=== PATIENT | female | born 1960 | race Caucasian/White ===

== ENCOUNTER 2018-04-27 18:20 | Emergency (ER) | payer OTHER ==
[~2018-04-27] VITALS: Ht 165.1 cm; Wt 70.3 kg
[2018-04-27 18:57] VITALS: BP 147/81
[2018-04-27] MEDS ORDERED: NEOMYCIN-BACITRACIN-POLYM 15GM TOP OINT TOP SCH (22:30)
[2018-04-27] MEDS ORDERED: BACITRACIN TOP OINT 1 UD PKG TOP ONE (22:30)
== END 2018-04-27 23:11 | disposition home or self-care (01) ==
LOC: ER 18:20
DX: S81.012A Laceration without foreign body, left knee, initial encounter (principal); I10 Essential (primary) hypertension; E11.9 Type 2 diabetes mellitus without complications; E78.00 Pure hypercholesterolemia, unspecified; W26.0XXA Contact with knife, initial encounter; Y93.89 Activity, other specified; Y99.8 Other external cause status; Y92.89 Other specified places as the place of occurrence of the external cause
CPT/HCPCS: 12001

== ENCOUNTER 2019-11-23 13:12 | Inpatient (IN) | payer OTHER ==
[~2019-11-23] VITALS: Ht 165.1 cm; Wt 69.3 kg
[2019-11-23 13:55] LABS: Basophils # (auto) 0.1 10 ^3/uL (0-0.2); Basophils % (auto) 1.4 % (0.0-2.0); Eosinophils # (auto) 0.3 10 ^3/uL (0-0.8); Eosinophils % (auto) 2.5 % (0.0-7.0); Hematocrit 40.5 % (36.0-46.0); Hemoglobin 12.9 g/dL (12.2-16.2); Lymphocytes % (auto) 28.9 % (10.0-50.0); Mean Corpuscular Hemoglobin 27.4 pg (28.0-32.0); Mean Corpuscular Hgb Conc. 31.8 g/dL (32.0-36.0); Monocytes # (auto) 0.7 10 ^3/uL (0-1.3); Monocytes % (auto) 6.4 % (0.0-12.0); Neutrophils # (auto) 6.3 10 ^3/uL (1.6-8.6); Neutrophils % (auto) 60.8 % (37.0-80.0); Nucleated Red Blood Cells % 0.1 %; Platelet Count (auto) 341 10^3/uL (140-450); Red Blood Cells 4.71 10^6/uL (4.0-5.20); Red Cell Distribution Width 14.2 % (11.8-14.3); White Blood Cell 10.3 10^3/uL (4.4-10.8)
[2019-11-23 14:26] LABS: Urine Bacteria NONE SEEN /hpf (None Seen); Urine Blood Negative /uL (Negative); Urine Mucus FEW (None Seen); Urine WBC 5 /hpf (0 - 5)
[2019-11-23 16:27] LABS: Albumin 3.8 g/dL (3.4-5.0); Calcium 9.3 mg/dL (8.5-10.1); Potassium 4.1 mmol/L (3.5-5.1)
[2019-11-23 16:31] LABS: BUN/Creatinine Ratio 12.7; Bilirubin, Total 0.3 mg/dL (0.2-1.0); Total Protein 8.2 g/dL (6.4-8.2)
[2019-11-23] MEDS ORDERED: SODIUM CHLORIDE 0.9% 1,000 ML IV ONE (17:00)
[2019-11-23] MEDS ORDERED: TAMSULOSIN HYDROCHLORIDE 0.4 MG CAP PO ONE (17:00)
[2019-11-23 17:10] LABS: Alcohol, Urine < 3.0 mg/dL (0-10); Amphetamine Screen, Urine NEGATIVE (NEGATIVE); Barbiturate Scree,Urine NEGATIVE (NEGATIVE); Benzodiazephine Screen, Urine NEGATIVE (NEGATIVE); Cannabinoid Screen, Urine NEGATIVE (NEGATIVE); Cocaine Screen, Urine NEGATIVE (NEGATIVE); Opiate Scree,Urine NEGATIVE (NEGATIVE); Phencyclidine Screen, Urine NEGATIVE (NEGATIVE)
[2019-11-23] MEDS ORDERED: PANTOPRAZOLE 40 MG/10 ML VIAL INJ IV ONE (19:15)
[2019-11-23] MEDS ORDERED: cefTRIAXone 1GM/50ML D5W 50 ML IV ONE (19:15)
[2019-11-23] MEDS ORDERED: MORPHINE SULF INJ 2 MG/ML SYRINGE 1ML IV PRN ×2 (19:15→19:30)
[2019-11-23] MEDS ORDERED: LACTATED RINGER'S 1,000 ML IV ONE (19:15)
[2019-11-23] MEDS ORDERED: NITROGLYCERIN 0.4 MG SL TAB SL PRN (19:30)
[2019-11-23 23:00] VITALS: BP 122/70
[2019-11-23 23:30] VITALS: BP 136/69
--- NOTE | 2019-11-23 23:30 | NUR ---
Telemetry admit from ER Alvarado Shonna admitted to Telemetry unit after SBAR received. Patient oriented to JEFERSON HEATH RN primary RN, unit, room, bed, and unit policies regarding patient care and visiting hours. Patient now on continuous telemetry monitoring, tele box # [id number] and telemetry reading on arrival to unit is Sinus Rhythm at 90BPM. Patient placed on bedside oxygen, weighed by bedscale and encouraged to call if they need something. All questions and concerns addressed, patient verbalized understanding.
--- NOTE | 2019-11-24 | NUR ---
Patient states she is taking metformin, Levothroid, vitamin D, Glipizide and 3 kinds of eye drops but cannot remember the dose of these medications.
[2019-11-24] MEDS ORDERED: MORPHINE SULF INJ 2 MG/ML SYRINGE 1ML IV PRN (02:00)
[2019-11-24] MEDS ORDERED: ACETAMINOPHEN 325 MG TAB PO PRN (02:00)
[2019-11-24] MEDS ORDERED: NITROGLYCERIN 0.4 MG SL TAB SL PRN (02:00)
[2019-11-24] MEDS ORDERED: LORazepam 0.5 MG TAB PO PRN (02:00)
[2019-11-24] MEDS ORDERED: ALUM & MAG HYDROX-SIMETH LIQ(MAALOX) 30 ML PO PRN (02:00)
[2019-11-24] MEDS ORDERED: DOCUSATE SOD 100 MG CAP PO PRN (02:00)
[2019-11-24] MEDS ORDERED: hydrALAZINE HCL 20 MG/ML VL IV PRN (02:30)
[2019-11-24] MEDS ORDERED: DEXTROSE (50%) 50ML SYRG IV PRN (02:30)
[2019-11-24 02:32] LABS: Urine Amorphous Crystal MANY /hpf (None Seen); Urine Bacteria FEW /hpf (None Seen); Urine Blood Negative /uL (Negative); Urine Specific Gravity 1.029 (1.001-1.035); Urine WBC 12 /hpf (0 - 5)
[2019-11-24 02:37] LABS: Alcohol, Urine < 3.0 mg/dL (0-10); Amphetamine Screen, Urine NEGATIVE (NEGATIVE); Barbiturate Scree,Urine NEGATIVE (NEGATIVE); Benzodiazephine Screen, Urine NEGATIVE (NEGATIVE); Cannabinoid Screen, Urine NEGATIVE (NEGATIVE); Cocaine Screen, Urine NEGATIVE (NEGATIVE); Opiate Scree,Urine NEGATIVE (NEGATIVE); Phencyclidine Screen, Urine NEGATIVE (NEGATIVE)
[2019-11-24 04:26] LABS: Cholesterol 134 mg/dL (< 200)
[2019-11-24 04:28] LABS: HDL Cholesterol 33 mg/dL (40-59); LDL Cholesterol 71 mg/dL (< 100); Triglycerides 303 mg/dL (< 150)
[2019-11-24] MEDS ORDERED: ASPI-543 PO (04:35)
[2019-11-24] MEDS ORDERED: ATOR20TA PO (04:52)
[2019-11-24 05:20] VITALS: BP 119/68
[2019-11-24] MEDS: SODIUM CHLORIDE 0.9% 1,000 ML IV SCH ×3 (06:19→23:00)
[2019-11-24] MEDS: ACCU-CHEK COMFORT CURVE STRIP VI SCH ×4 (06:20→22:59)
[2019-11-24] MEDS: InsuLIN REG 1unit/0.01ml Soln (100units/ml) SC SCH ×4 (06:21→23:13)
[2019-11-24] MEDS: LEVOTHYROXINE SODIUM 50 MCG TAB PO SCH (06:45)
[2019-11-24] MEDS: DORZOLAMIDE HCL 2% OPTH(EYE) SOL 10ML EACHEYE SCH ×3 (08:14→22:56)
[2019-11-24 09:00] VITALS: BP 124/76
[2019-11-24] MEDS: cefTRIAXone 1GM/50ML D5W 50 ML IV SCH (09:00)
[2019-11-24] MEDS: PANTOPRAZOLE 40 MG/10 ML VIAL INJ IV SCH (09:24)
[2019-11-24] MEDS: BRIMONIDINE 0.2% OPTH Soln 5ml EACHEYE SCH ×2 (09:24→22:56)
[2019-11-24] MEDS: METOPROLOL TARTRATE 25 MG TAB PO SCH ×2 (09:26→22:00)
[2019-11-24] MEDS: HEPARIN SODIUM (PORCINE) 5000 UNITS/ML 1ML VIAL SC SCH ×2 (09:26→23:12)
[2019-11-24] MEDS ORDERED: ASPirin 81 mg TAB PO SCH (10:00)
--- NOTE | 2019-11-24 10:22 | NUR ---
Opening Shift Note Assumed care of patient, awake and alert. No S/S of distress/SOB or pain. Instructed on POC and to call for assist PRN, will continue to monitor for changes Q1hr and PRN.
[2019-11-24 11:51] LABS: Basophils # (auto) 0.1 10 ^3/uL (0-0.2); Basophils % (auto) 0.8 % (0.0-2.0); Eosinophils # (auto) 0.1 10 ^3/uL (0-0.8); Eosinophils % (auto) 2.3 % (0.0-7.0); Hematocrit 36.3 % (36.0-46.0); Hemoglobin 11.7 g/dL (12.2-16.2); Lymphocytes # (auto) 1.9 10 ^3/uL (0.4-5.4); Lymphocytes % (auto) 28.9 % (10.0-50.0); Mean Corpuscular Hemoglobin 27.7 pg (28.0-32.0); Mean Corpuscular Hgb Conc. 32.4 g/dL (32.0-36.0); Mean Corpuscular Volume 85.5 fL (80.0-100.0); Monocytes # (auto) 0.5 10 ^3/uL (0-1.3); Monocytes % (auto) 7.4 % (0.0-12.0); Neutrophils # (auto) 3.9 10 ^3/uL (1.6-8.6); Neutrophils % (auto) 60.6 % (37.0-80.0); Platelet Count (auto) 270 10^3/uL (140-450); Red Blood Cells 4.24 10^6/uL (4.0-5.20); Red Cell Distribution Width 13.8 % (11.8-14.3); White Blood Cell 6.5 10^3/uL (4.4-10.8)
[2019-11-24 12:13] LABS: Albumin 3.2 g/dL (3.4-5.0); Calcium 8.6 mg/dL (8.5-10.1); Potassium 4.2 mmol/L (3.5-5.1)
[2019-11-24 12:17] LABS: INR 1.01 (0.9-1.15); Partial Thromboplastin Time 26.7 sec (23.0-31.2)
[2019-11-24 12:18] LABS: BUN/Creatinine Ratio 12.7; Bilirubin, Total 0.3 mg/dL (0.2-1.0); Magnesium 2.1 mg/dL (1.6-2.6); Phosphorus 3.2 mg/dL (2.5-4.90); Total Protein 7.2 g/dL (6.4-8.2)
[2019-11-24 13:00] VITALS: BP 134/70
--- NOTE | 2019-11-24 13:14 | NUR ---
dr aleman at bedside, electrical and instrument technician at bedside
--- NOTE | 2019-11-24 13:39 | NUR ---
dr aleman stated the abdominal and vaginal ultrasound are normal bleeding is most likely contributed to kidney stone
[2019-11-24 16:50] VITALS: BP 121/73
[2019-11-24] MEDS: TAMSULOSIN HYDROCHLORIDE 0.4 MG CAP PO SCH (17:03)
[2019-11-24] MEDS: ATORVASTATIN 20 MG TAB PO SCH (22:00)
[2019-11-24 22:34] VITALS: BP 118/65
[2019-11-24] MEDS: LATANOPROST 0.005 % OPTH(EYE) SOL 2.5ML EACHEYE SCH (22:57)
[2019-11-25 05:30] VITALS: BP 120/53
[2019-11-25] MEDS: DORZOLAMIDE HCL 2% OPTH(EYE) SOL 10ML EACHEYE SCH ×3 (06:09→22:00)
[2019-11-25] MEDS: ACCU-CHEK COMFORT CURVE STRIP VI SCH ×4 (06:09→22:36)
[2019-11-25] MEDS: LEVOTHYROXINE SODIUM 50 MCG TAB PO SCH (06:09)
[2019-11-25] MEDS: InsuLIN REG 1unit/0.01ml Soln (100units/ml) SC SCH ×4 (06:10→22:44)
[2019-11-25 06:32] LABS: Potassium 4.1 mmol/L (3.5-5.1)
[2019-11-25 06:44] LABS: BUN/Creatinine Ratio 17.7; Calcium 8.5 mg/dL (8.5-10.1)
--- NOTE | 2019-11-25 07:30 | NUR ---
Opening Shift Note Assumed care of patient, resting comfortably. No S/S of distress/SOB or pain on room air. Instructed on POC and to call for assist PRN, will continue to monitor for changes Q1hr and PRN. Bed in low and locked position, rails up x2, no-slip socks on. NPO status maintained for procedure today.
[2019-11-25] MEDS ORDERED: METF-370 PO (08:56)
[2019-11-25] MEDS ORDERED: CHOL20007 PO (08:56)
[2019-11-25] MEDS ORDERED: GLIP5TAB12 PO (08:56)
[2019-11-25] MEDS ORDERED: LEVO25TA6 PO (08:56)
[2019-11-25 09:00] VITALS: BP 123/76
--- NOTE | 2019-11-25 09:18 | NUR ---
DR MULLINS AT BEDSIDE
--- NOTE | 2019-11-25 09:45 | NUR ---
PATIENT OFF UNIT FOR PROCEDURE LATENT FINGERPRINT EXAMINER FOR IR NEPHROSTOMY TUBE PLACEMENT
--- NOTE | 2019-11-25 09:50 | NUR ---
CONSENTS NOT SIGNED PATIENT EXPLAINED SHE STILL HAD QUESTIONS FOR THE DOCTOR REGARDING PROCEDURE, PATIENT ALSO STATED AN ALLERGY TO CONTRAST-IODINE WHEN DOWNSTAIRS IN FINISHING SUPERVISOR PLASTIC SHEETS, PATIENT HAD NOT PREVIOUSLY ADMITTED TO AN ALLERGY TO CONTRAST SINCE ADMISSION. ALLERGY TO BE ADDED TO PATIENT CHART.
[2019-11-25] MEDS: HEPARIN SODIUM (PORCINE) 5000 UNITS/ML 1ML VIAL SC SCH ×2 (10:00→22:00)
[2019-11-25] MEDS: PANTOPRAZOLE 40 MG/10 ML VIAL INJ IV SCH (10:00)
[2019-11-25] MEDS: METOPROLOL TARTRATE 25 MG TAB PO SCH ×2 (10:00→22:00)
[2019-11-25] MEDS ORDERED: LIDOCAINE 2%HCL (LOCAL ANESTH.) INJ 20ML MDV ONE (10:31)
[2019-11-25] MEDS ORDERED: MIDAZOLAM HCL 1MG/1ML-2 ML VIAL ONE ×2 (10:41→16:46)
[2019-11-25] MEDS ORDERED: fentaNYL CITRATE 100 MCG/2 ML VL ONE ×2 (10:41→16:46)
[2019-11-25] MEDS ORDERED: diphenhdrAMINE HCL 50 MG/1 ML VL ONE (10:43)
[2019-11-25] MEDS ORDERED: methylPREDNISolone SOD SUCC 125 MG/2 ML VL ONE (10:43)
[2019-11-25] MEDS ORDERED: FAMOTIDINE (10MG/ML) 2ML VL IV ONE (10:43)
[2019-11-25] MEDS: BRIMONIDINE 0.2% OPTH Soln 5ml EACHEYE SCH ×2 (12:29→22:00)
[2019-11-25] MEDS: cefTRIAXone 1GM/50ML D5W 50 ML IV SCH (12:29)
--- NOTE | 2019-11-25 12:30 | NUR ---
PATIENT BACK ON UNIT PATIENT TOLERATED PROCEDURE WELL, NEW NEPHROSTOMY TUBE TO LEFT FLANK DRAINING PINK URINE, DRESSING INTACT.
[2019-11-25 13:00] VITALS: BP 135/80
--- NOTE | 2019-11-25 15:45 | NUR ---
PATIENT OFF UNIT LITHOTRIPSY
[2019-11-25] MEDS ORDERED: IOHEXOL 300 MG/ML 100ML BOTTLE IJ ONE (16:33)
[2019-11-25] MEDS ORDERED: FUROSEMIDE 20 MG/2 ML VIAL IV ONE (16:35)
[2019-11-25] MEDS ORDERED: ceFAZolin 1GM/50ML 50 ML IV ONE (16:38)
[2019-11-25 17:04] VITALS: BP 139/71
[2019-11-25] MEDS ORDERED: PROPOFOL 10 MG/ML 20 ML IV ONE (17:34)
[2019-11-25] MEDS: TAMSULOSIN HYDROCHLORIDE 0.4 MG CAP PO SCH (18:00)
[2019-11-25] MEDS ORDERED: ONDANSETRON HCL 4 MG/2 ML VIAL IV PRN (18:15)
[2019-11-25] MEDS ORDERED: fentaNYL CITRATE 100 MCG/2 ML VL IV PRN (18:15)
[2019-11-25] MEDS ORDERED: hydrALAZINE HCL 20 MG/ML VL IV PRN (18:15)
[2019-11-25] MEDS ORDERED: ePHEDrine SULFATE 50 MG/ML AMP IV PRN (18:15)
[2019-11-25] MEDS: ONDANSETRON HCL 4 MG/2 ML VIAL IV PRN (18:50)
[2019-11-25] MEDS: MORPHINE SULF INJ 2 MG/ML SYRINGE 1ML IV PRN (20:28)
[2019-11-25 22:00] VITALS: BP 147/76
[2019-11-25] MEDS: ATORVASTATIN 20 MG TAB PO SCH (22:00)
[2019-11-25] MEDS: LATANOPROST 0.005 % OPTH(EYE) SOL 2.5ML EACHEYE SCH (22:00)
[2019-11-26] MEDS: ONDANSETRON HCL 4 MG/2 ML VIAL IV PRN ×2 (00:30→06:56)
[2019-11-26] MEDS: SODIUM CHLORIDE 0.9% 1,000 ML IV SCH ×2 (03:57→20:37)
[2019-11-26 05:00] VITALS: BP 149/60
[2019-11-26] MEDS: DORZOLAMIDE HCL 2% OPTH(EYE) SOL 10ML EACHEYE SCH ×3 (06:53→23:07)
[2019-11-26] MEDS: LEVOTHYROXINE SODIUM 50 MCG TAB PO SCH (06:54)
[2019-11-26] MEDS: ACCU-CHEK COMFORT CURVE STRIP VI SCH ×4 (06:55→23:07)
[2019-11-26] MEDS: MORPHINE SULF INJ 2 MG/ML SYRINGE 1ML IV PRN (06:55)
[2019-11-26] MEDS: InsuLIN REG 1unit/0.01ml Soln (100units/ml) SC SCH ×4 (06:55→23:08)
--- NOTE | 2019-11-26 07:49 | NUR ---
Opening Note Assumed pt care from NOC RN. Pt is a/ox4 with no s/s of distress or SOB. Pt is currently laying in bed with no complaints at this time. Nephrostomy tube present to L side. Capped with credit review analyst, site is asymptomatic. Romero is present, draining to gravity. Dark red/juli urine present. Discussed POC with pt; pt verbalized understanding. Safety measures maintained with call light within reach, bed in lowest position and side rails up. Will continue to monitor for changes.
[2019-11-26 09:00] VITALS: BP 137/59
--- NOTE | 2019-11-26 09:03 | NUR ---
Dr White at Bedside MD to see pt. Discussed POC with pt. is consulting Dr Gonzalez for further POC and d/c planning. No new orders at this time. Will continue to monitor.
[2019-11-26] MEDS: HEPARIN SODIUM (PORCINE) 5000 UNITS/ML 1ML VIAL SC SCH ×2 (09:24→23:14)
[2019-11-26] MEDS: cefTRIAXone 1GM/50ML D5W 50 ML IV SCH (09:24)
[2019-11-26] MEDS: METOPROLOL TARTRATE 25 MG TAB PO SCH ×2 (09:24→22:00)
[2019-11-26] MEDS: PANTOPRAZOLE 40 MG/10 ML VIAL INJ IV SCH (09:24)
[2019-11-26] MEDS: BRIMONIDINE 0.2% OPTH Soln 5ml EACHEYE SCH ×2 (09:31→23:06)
--- NOTE | 2019-11-26 11:40 | NUR ---
IV Insertion and D/C 20G to pt's L FA inserted. One attempt made. Clean/sterile technique used; pt tolerated well. IV to pt's L hand d/c'ed. Catheter was removed fully intact, site is asymptomatic. Pressure was applied to site for 3 minutes with gauze and then wrapped in coban. Pt instructed to keep dressing on for 30 minutes.
--- NOTE | 2019-11-26 13:07 | NUR ---
Straining of Urine Mild sediment noted after straining urine from randall.Urine is still dark red/juli color. No pain as stated by patient. Will continue to monitor.
[2019-11-26] MEDS: HYDROcodone-ACET 5/325MG TAB PO PRN ×2 (15:06→23:15)
--- NOTE | 2019-11-26 15:11 | NUR ---
Pt C/O Flank Pain Pt states that she has some L flank discomfort, 5/10 spasm like in nature. Provided pt with pain medication. Assessed Nephrostomy drain, drained approximately 5mL of sanguinous fluid. Will continue to monitor.
[2019-11-26 17:00] VITALS: BP 124/75
[2019-11-26] MEDS: TAMSULOSIN HYDROCHLORIDE 0.4 MG CAP PO SCH (17:32)
[2019-11-26 22:00] VITALS: BP 136/67
[2019-11-26] MEDS: ATORVASTATIN 20 MG TAB PO SCH (22:00)
[2019-11-26] MEDS: LATANOPROST 0.005 % OPTH(EYE) SOL 2.5ML EACHEYE SCH (23:07)
[2019-11-27 05:45] VITALS: BP 131/71
[2019-11-27] MEDS: DORZOLAMIDE HCL 2% OPTH(EYE) SOL 10ML EACHEYE SCH ×3 (07:02→22:10)
[2019-11-27] MEDS: LEVOTHYROXINE SODIUM 50 MCG TAB PO SCH (07:02)
[2019-11-27] MEDS: InsuLIN REG 1unit/0.01ml Soln (100units/ml) SC SCH ×4 (07:03→22:14)
[2019-11-27] MEDS: ACCU-CHEK COMFORT CURVE STRIP VI SCH ×4 (07:04→22:11)
--- NOTE | 2019-11-27 07:55 | NUR ---
Opening Note Assumed pt care from NOC RN. Pt is a/ox4 with no s/s of distress or SOB/ Pt is currently sitting upright in bed with mild c/o flank pain to L side, 07/28; discussed pain interventions. Romero is present, draining to gravity and free of kinks. Urine is red/juli color. Discussed with pt to increase in fluids; pt verbalized understanding. Safety measures maintained with call light within reach, bed in lowest position, and side rails up. Will continue to monitor for changes.
[2019-11-27] MEDS: HYDROcodone-ACET 5/325MG TAB PO PRN ×2 (08:26→23:20)
[2019-11-27 09:00] VITALS: BP 122/50
--- NOTE | 2019-11-27 09:02 | NUR ---
Dr Steve at Bedside MD to see pt. Pending further POC by Dr Gonzalez. New orders given; read back and verified. Will implement.
[2019-11-27] MEDS: METOPROLOL TARTRATE 25 MG TAB PO SCH ×2 (09:14→21:58)
[2019-11-27] MEDS: PANTOPRAZOLE 40 MG/10 ML VIAL INJ IV SCH (09:14)
[2019-11-27] MEDS: cefTRIAXone 1GM/50ML D5W 50 ML IV SCH (09:14)
[2019-11-27] MEDS: HEPARIN SODIUM (PORCINE) 5000 UNITS/ML 1ML VIAL SC SCH ×2 (09:14→22:10)
[2019-11-27] MEDS: BRIMONIDINE 0.2% OPTH Soln 5ml EACHEYE SCH ×2 (09:19→22:10)
--- NOTE | 2019-11-27 09:38 | NUR ---
STRAINED URINE Mild sediment noted after straining urine with out put of 465cc juli color from randall catheter. No pain as stated by patient. Will continue to monitor. Signed: 11/27/19 at 0942 by ANGELINE HOYT <Co-Signature Required> Co-Signed: 11/27/19 at 42 by JALYN GOMEZ RN RN
[2019-11-27] MEDS ORDERED: LACTULOSE 20Gm/30ML SOLN PO PRN (09:45)
[2019-11-27] MEDS ORDERED: DOCUSATE SOD 100 MG CAP PO SCH (10:00)
[2019-11-27 11:47] LABS: Basophils # (auto) 0.1 10 ^3/uL (0-0.2); Basophils % (auto) 0.8 % (0.0-2.0); Eosinophils # (auto) 0.1 10 ^3/uL (0-0.8); Eosinophils % (auto) 1.3 % (0.0-7.0); Hematocrit 33.9 % (36.0-46.0); Hemoglobin 11.2 g/dL (12.2-16.2); Lymphocytes # (auto) 1.8 10 ^3/uL (0.4-5.4); Lymphocytes % (auto) 24.5 % (10.0-50.0); Mean Corpuscular Hemoglobin 28.1 pg (28.0-32.0); Mean Corpuscular Hgb Conc. 32.9 g/dL (32.0-36.0); Mean Corpuscular Volume 85.3 fL (80.0-100.0); Monocytes # (auto) 0.7 10 ^3/uL (0-1.3); Monocytes % (auto) 9.2 % (0.0-12.0); Neutrophils # (auto) 4.7 10 ^3/uL (1.6-8.6); Neutrophils % (auto) 64.2 % (37.0-80.0); Platelet Count (auto) 245 10^3/uL (140-450); Red Blood Cells 3.97 10^6/uL (4.0-5.20); Red Cell Distribution Width 14.2 % (11.8-14.3); White Blood Cell 7.3 10^3/uL (4.4-10.8)
[2019-11-27 12:08] LABS: Calcium 8.5 mg/dL (8.5-10.1)
[2019-11-27 12:10] LABS: BUN/Creatinine Ratio 10.6
[2019-11-27] MEDS: SODIUM CHLORIDE 0.9% 1,000 ML IV SCH (12:49)
--- NOTE | 2019-11-27 12:56 | NUR ---
Est energy needs 7526-7476 kcal (25-30 kcal/kg BW 68kg) est protein needs 41-54g (0.6-0.8g/kg BW 68kg r/t elevated RFTs) WIll reassess prn. Addendum: 11/27/19 at [address] Amended: Links added.
--- NOTE | 2019-11-27 16:02 | NUR ---
STRAINED URINE Mild sediment noted after straining urine with output of 700cc juli color from randall catheter. No pain as stated by patient. Will continue to monitor. Signed: 11/27/19 at 1602 by ANGELINE HOYT <Co-Signature Required> Co-Signed: 11/27/19 at 1602 by JALYN GOMEZ RN RN
[2019-11-27 17:00] VITALS: BP 149/70
[2019-11-27] MEDS: TAMSULOSIN HYDROCHLORIDE 0.4 MG CAP PO SCH (17:11)
--- NOTE | 2019-11-27 19:35 | NUR ---
RECEIVED PATIENT FROM DAY SHIFT RN. PATIENT RESTING IN BED. NO S/S OF DISTRESS NOTED. DENIED PAIN FOR NOW BUT SORE AT THE LEFT SIDE OF THE BACK IN WHERE NEPHROSTOMY TUBE PLACED WITH DRESSING C/D/I. PATIENT UNDERSTOOD TO CALL FOR PAIN MEDICATION IF SHE NEEDS SCHEDULED. RODRIGUEZ CATH IN PLACE DRAINING TO GRAVITY WITH STRAW COLOR URINE. REPOSITIONED PATIENT TO COMFORT. POC INSTRUCTED AND ENCOURAGED PATIENT TO CALL FOR TELEPHONE BETTING CLERK IF NEEDED. BED IN LOWEST POSITION WITH SIDE RAILS UP X 2. CALL SMITH WITHIN REACH. ALARM ON. CONTINUE TO MONITOR FOR CHANGES Q1H AND PRN.
[2019-11-27] MEDS: DOCUSATE SOD 100 MG CAP PO SCH (21:58)
[2019-11-27 22:00] VITALS: BP 129/71
[2019-11-27] MEDS: ATORVASTATIN 20 MG TAB PO SCH (22:10)
[2019-11-27] MEDS: LATANOPROST 0.005 % OPTH(EYE) SOL 2.5ML EACHEYE SCH (22:10)
--- NOTE | 2019-11-27 22:25 | NUR ---
ACCU-CHECK, BS 245, INSULIN GIVEN ORDERED. CONTINUE TO MONITOR.
--- NOTE | 2019-11-27 23:20 | NUR ---
PATIENT C/O PAIN @ 07/28. MEDICATED PATIENT ORDERED. CONTINUE TO MONITOR.
--- NOTE | 2019-11-28 00:20 | NUR ---
REASSESSED PAIN. PATIENT SLEEPING. NO S/S OF PAIN NOTED. CONTINUE TO MONITOR
[2019-11-28] MEDS: SODIUM CHLORIDE 0.9% 1,000 ML IV SCH ×2 (01:28→22:12)
--- NOTE | 2019-11-28 02:06 | NUR ---
PATIENT WALKED TO BATHROOM WITH STEADY GAIT. HAD BM. CONTINUE TO MONITOR
[2019-11-28] MEDS: DORZOLAMIDE HCL 2% OPTH(EYE) SOL 10ML EACHEYE SCH ×3 (05:35→22:10)
[2019-11-28] MEDS: HYDROcodone-ACET 5/325MG TAB PO PRN ×2 (05:36→17:32)
--- NOTE | 2019-11-28 05:36 | NUR ---
PATIENT C/O PAIN @ 08/27. MEDICATED PATIENT ORDERED. CONTINUE TO MONITOR.
[2019-11-28 06:00] VITALS: BP 128/81
[2019-11-28] MEDS: InsuLIN REG 1unit/0.01ml Soln (100units/ml) SC SCH ×4 (06:24→22:14)
[2019-11-28] MEDS: ACCU-CHEK COMFORT CURVE STRIP VI SCH ×4 (06:24→22:11)
[2019-11-28] MEDS: LEVOTHYROXINE SODIUM 50 MCG TAB PO SCH (06:24)
--- NOTE | 2019-11-28 06:30 | NUR ---
REASSESSED PAIN 0/10. ACCU-CHECK, BS 251. INSULIN GIVEN ORDERED. CONTINUE TO MONITOR.
--- NOTE | 2019-11-28 07:35 | NUR ---
Opening Shift Note Assumed care of patient, awake and alert. No S/S of distress/SOB or pain reported at this time, nephrostomy tube noted to left lower back, site has minimal ecchymosis noted, no c/o pain to site, tube, randall patent and draining juli urine with hematuria noted, call light within reach, Instructed on POC and to call for assist PRN, will continue to monitor for changes Q1hr and PRN.
[2019-11-28 07:37] LABS: BUN/Creatinine Ratio 11.8; Calcium 8.6 mg/dL (8.5-10.1); Potassium 4.2 mmol/L (3.5-5.1)
[2019-11-28 08:00] VITALS: BP 128/74
[2019-11-28 09:14] VITALS: BP 128/74
[2019-11-28] MEDS: HEPARIN SODIUM (PORCINE) 5000 UNITS/ML 1ML VIAL SC SCH (10:00)
[2019-11-28] MEDS: cefTRIAXone 1GM/50ML D5W 50 ML IV SCH (10:51)
[2019-11-28] MEDS: DOCUSATE SOD 100 MG CAP PO SCH ×2 (10:52→22:10)
[2019-11-28] MEDS: PANTOPRAZOLE 40 MG/10 ML VIAL INJ IV SCH (10:52)
[2019-11-28] MEDS: METOPROLOL TARTRATE 25 MG TAB PO SCH ×2 (10:52→22:11)
[2019-11-28] MEDS: BRIMONIDINE 0.2% OPTH Soln 5ml EACHEYE SCH ×2 (10:53→22:10)
[2019-11-28 12:46] VITALS: BP 126/65
--- NOTE | 2019-11-28 14:20 | NUR ---
AT BEDSIDE DR RODRIGUEZ AT BEDSIDE, DISCUSSING POC WITH PT, MD WILL WAIT FOR DR SOTELO TO EVALUATE PT RE: RODRIGUEZ AND NEPHROSTOMY TUBE, INFORMED HEPARIN WILL BE HELD R/T HEMATURIA, CONT CARE
--- NOTE | 2019-11-28 15:48 | NUR ---
PT OFF UNIT/TAKEN TO RADIOLOGY TAKEN VIA WHEELCHAIR, NO DISTRESS NOTED, CONT CARE
[2019-11-28] MEDS ORDERED: IOHEXOL 300 MG/ML 100ML BOTTLE IJ ONE (15:49)
[2019-11-28] MEDS ORDERED: diphenhdrAMINE HCL 50 MG/1 ML VL IV ONE (16:15)
[2019-11-28 17:00] VITALS: BP 132/63
[2019-11-28] MEDS: TAMSULOSIN HYDROCHLORIDE 0.4 MG CAP PO SCH (17:30)
[2019-11-28] MEDS: glipiZIDE 5 MG TAB PO SCH (17:32)
--- NOTE | 2019-11-28 17:35 | NUR ---
CALL BACK SPOKE WITH DR SOTELO, REGARDING NEPHROSTOMY TUBE AND POSSIBLE DC OF RODRIGUEZ CATHETER PER DR RODRIGUEZ, ORDERED TO CONT WITH NEPHROSOGRAM AND HE WILL COME SEE PT LATER TODAY, AWARE THAT HEPARIN WAS HELD R/T HEMATURIA, MD AGREES TO CONT AND HOLD HEPARIN SUBQ, CONT CARE Addendum: 11/28/19 at 1954 by Myrna Orellana RN nephrostogram
--- NOTE | 2019-11-28 20:10 | NUR ---
Dr Gonzalez in to see patient Orders received to DC randall and to open nephrostomy tube to drainage bag. Will carry out orders and continue to monitor.
--- NOTE | 2019-11-28 20:20 | NUR ---
Randall catheter dc'd Order to discontinue randall catheter. Randall dc'd with clean technique following deflation of balloon. Elisabet STERN in room during procedure. Patient tolerated well with no complaints of pain. Will continue to monitor
[2019-11-28 22:00] VITALS: BP 119/65
[2019-11-28] MEDS: LATANOPROST 0.005 % OPTH(EYE) SOL 2.5ML EACHEYE SCH (22:10)
[2019-11-28] MEDS: ATORVASTATIN 20 MG TAB PO SCH (22:11)
[2019-11-29 06:00] VITALS: BP 123/78
[2019-11-29 06:20] LABS: Hematocrit 33.3 % (36.0-46.0); Hemoglobin 10.8 g/dL (12.2-16.2)
[2019-11-29 06:40] LABS: Calcium 8.7 mg/dL (8.5-10.1)
[2019-11-29 06:45] LABS: BUN/Creatinine Ratio 12.5
[2019-11-29] MEDS: DORZOLAMIDE HCL 2% OPTH(EYE) SOL 10ML EACHEYE SCH (06:46)
[2019-11-29] MEDS: glipiZIDE 5 MG TAB PO SCH (06:47)
[2019-11-29] MEDS: LEVOTHYROXINE SODIUM 50 MCG TAB PO SCH (06:47)
[2019-11-29] MEDS: ACCU-CHEK COMFORT CURVE STRIP VI SCH ×2 (06:47→11:23)
[2019-11-29] MEDS: InsuLIN REG 1unit/0.01ml Soln (100units/ml) SC SCH ×2 (06:48→11:23)
[2019-11-29 08:00] VITALS: BP 124/67
[2019-11-29 09:00] VITALS: BP 124/67
[2019-11-29] MEDS: cefTRIAXone 1GM/50ML D5W 50 ML IV SCH (09:00)
[2019-11-29] MEDS: PANTOPRAZOLE 40 MG/10 ML VIAL INJ IV SCH (10:00)
[2019-11-29] MEDS: DOCUSATE SOD 100 MG CAP PO SCH (10:00)
[2019-11-29] MEDS: BRIMONIDINE 0.2% OPTH Soln 5ml EACHEYE SCH (10:00)
[2019-11-29] MEDS: METOPROLOL TARTRATE 25 MG TAB PO SCH (10:00)
[2019-11-29 13:00] VITALS: BP 127/77
[2019-11-29 13:57] VITALS: BP 127/77
--- NOTE | 2019-11-29 16:45 | NUR ---
Discharge instructions given as ordered. Encourage to follow up with PMD as instructed. All questions and concerns addressed. Patient verbalized understanding. Medication reconciliation form completed and copy given to patient. No Home medications held in Pharmacy and none to be returned to patient, and no needed vaccines given. IV removed with catheter intact, pressure dressing applied. Telemetry unit returned to ICU. Patient taken to vehicle via wheelchair with all personal belongings and prescriptions in hand, accompanied by staff . No distress noted at time of departure.
[2020-01-05] MEDS ORDERED: ASPI-543 PO (15:19)
[2020-01-05] MEDS ORDERED: NITR-87 PO (15:19)
[2020-01-05] MEDS ORDERED: ALOG1TAB PO (15:19)
== END 2019-11-29 16:45 | disposition home or self-care (01) | DRG 465 ==
LOC: ER 13:12 → TELE 13:13 → TELE-WESTW 23:15
PROVIDERS: ADMIT Hospitalist; ATTEND Internal Medicine
PROC: 0TF3XZZ Fragmentation in Right Kidney Pelvis, External Approach (ICD-10-PCS; 2019-11-25)
PROC: BT1F1ZZ Fluoroscopy of Left Kidney, Ureter and Bladder using Low Osmolar Contrast (ICD-10-PCS; 2019-11-25)
PROC: 0T9130Z Drainage of Left Kidney with Drainage Device, Percutaneous Approach (ICD-10-PCS; 2019-11-25)
PROC: 0TF7XZZ Fragmentation in Left Ureter, External Approach (ICD-10-PCS; principal; 2019-11-25 16:45)
DX: N13.2 Hydronephrosis with renal and ureteral calculous obstruction (principal); N18.3 Chronic kidney disease, stage 3 (moderate); N17.0 Acute kidney failure with tubular necrosis; E11.21 Type 2 diabetes mellitus with diabetic nephropathy; E03.9 Hypothyroidism, unspecified; E78.5 Hyperlipidemia, unspecified; E11.22 Type 2 diabetes mellitus with diabetic chronic kidney disease; E11.65 Type 2 diabetes mellitus with hyperglycemia; I12.9 Hypertensive chronic kidney disease with stage 1 through stage 4 chronic kidney disease, or unspecified chronic kidney disease; Z20.828 Contact with and (suspected) exposure to other viral communicable diseases; Z80.3 Family history of malignant neoplasm of breast; Z80.49 Family history of malignant neoplasm of other genital organs; Z82.0 Family history of epilepsy and other diseases of the nervous system; Z83.3 Family history of diabetes mellitus; Z87.442 Personal history of urinary calculi
CPT/HCPCS: 36415; 50432; 71045; 74176; 74425; 76830; 76856; 76942; 80048; 80053; 80061; 80307; 81001; 82962; 83036; 83735; 84100; 84443; 85014; 85018; 85025; 85610; 85730; 87040; 87086; 93005; 99152; C1729; C9113; G0378; J0690; J0696; J1815; J2250; J2405; J2704; J3490

== ENCOUNTER 2019-12-17 08:26 | Emergency (ER) | payer OTHER ==
[~2019-12-17] VITALS: Ht 165.1 cm; Wt 63.5 kg
[~2019-12-17 08:26] MED LIST: ATOR20TA PO; CHOL20007 PO; GLIP5TAB12 PO; LEVO25TA6 PO; METF-370 PO
[2019-12-17 08:48] VITALS: BP 104/52
[2019-12-17 10:18] LABS: Urine Bacteria FEW /hpf (None Seen); Urine Blood 3+ /uL (Negative); Urine WBC 126 /hpf (0 - 5); Urine WBC Clumps PRESENT /hpf (None Seen)
[2019-12-17 11:20] LABS: Basophils # (auto) 0 10 ^3/uL (0-0.2); Basophils % (auto) 0.6 % (0.0-2.0); Eosinophils # (auto) 0.2 10 ^3/uL (0-0.8); Eosinophils % (auto) 3.2 % (0.0-7.0); Hematocrit 35.1 % (36.0-46.0); Hemoglobin 11.3 g/dL (12.2-16.2); Lymphocytes % (auto) 28.5 % (10.0-50.0); Mean Corpuscular Hemoglobin 27.9 pg (28.0-32.0); Mean Corpuscular Hgb Conc. 32.1 g/dL (32.0-36.0); Mean Corpuscular Volume 86.9 fL (80.0-100.0); Monocytes # (auto) 0.6 10 ^3/uL (0-1.3); Monocytes % (auto) 8.4 % (0.0-12.0); Neutrophils # (auto) 4.2 10 ^3/uL (1.6-8.6); Neutrophils % (auto) 59.3 % (37.0-80.0); Nucleated Red Blood Cells % 0.1 %; Platelet Count (auto) 265 10^3/uL (140-450); Red Blood Cells 4.04 10^6/uL (4.0-5.20); Red Cell Distribution Width 14.5 % (11.8-14.3); White Blood Cell 7.1 10^3/uL (4.4-10.8)
[2019-12-17] MEDS ORDERED: cefTRIAXone SOD 1,000 MG VL IM ONE (11:30)
[2019-12-17] MEDS ORDERED: PHENAZOPYRIDINE HCL 100 MG TAB PO ONE (11:30)
[2019-12-17 11:35] LABS: Albumin 3.6 g/dL (3.4-5.0); Calcium 8.7 mg/dL (8.5-10.1); Potassium 4.6 mmol/L (3.5-5.1)
[2019-12-17 11:39] LABS: BUN/Creatinine Ratio 10.5; Bilirubin, Total 0.4 mg/dL (0.2-1.0); Total Protein 7.3 g/dL (6.4-8.2)
== END 2019-12-17 11:59 | disposition home or self-care (01) ==
LOC: ER 08:26
DX: N39.0 Urinary tract infection, site not specified (principal); E11.9 Type 2 diabetes mellitus without complications; E78.5 Hyperlipidemia, unspecified; Z79.899 Other long term (current) drug therapy
CPT/HCPCS: 36415; 80053; 81001; 85025; 96372; 99283; J0696

== ENCOUNTER → 2020-01-04 | Emergency (ER) | payer OTHER ==
[~2020-01-04] VITALS: Ht 165.1 cm; Wt 63.5 kg
[~2020-01-04] MED LIST changes: +ALOG1TAB PO; +ASPI-543 PO; +IOHEXOL 300 MG/ML 100ML BOTTLE IJ ONE; +LIDOCAINE 2%HCL (LOCAL ANESTH.) INJ 20ML MDV ONE; +NITR-87 PO; +cefTRIAXone 1GM/50ML D5W 50 ML IV ONE; +diphenhdrAMINE HCL 50 MG/1 ML VL IV ONE
[2020-01-04 09:14] LABS: Urine Bacteria NONE SEEN /hpf (None Seen); Urine Blood 3+ /uL (Negative); Urine WBC 2419 /hpf (0 - 5); Urine WBC Clumps PRESENT /hpf (None Seen)
[2020-01-04 09:58] LABS: Basophils # (auto) 0.1 10 ^3/uL (0-0.2); Basophils % (auto) 0.5 % (0.0-2.0); Eosinophils # (auto) 0.2 10 ^3/uL (0-0.8); Eosinophils % (auto) 1.6 % (0.0-7.0); Hematocrit 39.3 % (36.0-46.0); Hemoglobin 12.6 g/dL (12.2-16.2); Lymphocytes # (auto) 1.9 10 ^3/uL (0.4-5.4); Lymphocytes % (auto) 18.4 % (10.0-50.0); Mean Corpuscular Hemoglobin 27.7 pg (28.0-32.0); Mean Corpuscular Volume 86.5 fL (80.0-100.0); Monocytes # (auto) 0.6 10 ^3/uL (0-1.3); Monocytes % (auto) 6.2 % (0.0-12.0); Neutrophils # (auto) 7.6 10 ^3/uL (1.6-8.6); Neutrophils % (auto) 73.3 % (37.0-80.0); Platelet Count (auto) 262 10^3/uL (140-450); Red Blood Cells 4.55 10^6/uL (4.0-5.20); Red Cell Distribution Width 14.3 % (11.8-14.3); White Blood Cell 10.3 10^3/uL (4.4-10.8)
[2020-01-04 10:15] LABS: Albumin 3.9 g/dL (3.4-5.0); Calcium 9.3 mg/dL (8.5-10.1); Potassium 4.3 mmol/L (3.5-5.1)
[2020-01-04 10:18] LABS: BUN/Creatinine Ratio 19.8; Bilirubin, Total 0.5 mg/dL (0.2-1.0); Total Protein 8.4 g/dL (6.4-8.2)
[2020-01-04 12:07] LABS: INR 0.96 (0.9-1.15)
[2020-01-04 15:46] VITALS: BP 131/58
== END | disposition home or self-care (01) ==
LOC: ER 07:35
DX: N39.0 Urinary tract infection, site not specified (principal); R10.9 Unspecified abdominal pain; Z93.6 Other artificial openings of urinary tract status; E11.9 Type 2 diabetes mellitus without complications; E78.5 Hyperlipidemia, unspecified; Z87.442 Personal history of urinary calculi; Z79.899 Other long term (current) drug therapy; Z88.8 Allergy status to other drugs, medicaments and biological substances
CPT/HCPCS: 36415; 74425; 80053; 81001; 85025; 85610; 96365; 96375; 99285; J0696; J1200; Q9967

== ENCOUNTER → 2020-01-23 | Outpatient (CLI) | payer OTHER ==
[~2020-01-23] MED LIST changes: -IOHEXOL 300 MG/ML 100ML BOTTLE IJ ONE; -LIDOCAINE 2%HCL (LOCAL ANESTH.) INJ 20ML MDV ONE; -cefTRIAXone 1GM/50ML D5W 50 ML IV ONE; -diphenhdrAMINE HCL 50 MG/1 ML VL IV ONE
== END | disposition home or self-care (01) ==
LOC: LAB 17:51
PROVIDERS: ATTEND Urology
DX: N20.0 Calculus of kidney (principal); N39.0 Urinary tract infection, site not specified
CPT/HCPCS: 82360; 87086